=== PATIENT | male | born 1955 | race Caucasian/White ===

== ENCOUNTER 2017-02-17 10:01 | Emergency (ER) | payer MEDICARE, OTHER ==
[~2017-02-17] VITALS: Ht 165.1 cm; Wt 75.0 kg
[~2017-02-17 10:01] MED LIST: AMLO10TA2 PO; ATOR40TA16 PO; BENEPOW8 PO; CENTTAB PO; FISHCAP4 PO; LISI40TA PO; METF500T PO; PANT20 PO; TAMS5CAP PO; VITA500T PO; VITACAP7 PO
[2017-02-17 10:04] VITALS: BP 185/70; PULSE 67; RESP 18; TEMP 98; O2SAT 98
--- NOTE | 2017-02-17 10:11 | PD ---
HPI Chief Complaint: GI Complaint Time Seen by Provider: 10:10 Travel History International Travel<30 days: No Contact w/Intl Traveler<30days: No Traveled to known affect area: No History of Present Illness HPI 61-year-old male arrives with rectal bleeding for 2 months intermittently, noting blood in the throat pain. Occasional blood uncontrollable. He underwent colonoscopy and endoscopy approximately 8 months prior which was grossly unremarkable. He was started on aspirin several days ago however stopped. He reports an upset stomach on occasion. He reports a loose stools on occasion. Overall diet has been decreased. No abdominal pain. No fever. PFSH Past Medical History Depression: Yes Cardiovascular Problems: Yes Diabetes: Yes GERD: Yes Hypertension: Yes Social History Alcohol Use: No Tobacco Use: No Substance Use: No Allergies-Medications (Allergen,Severity, Reaction): Coded Allergies: Bees (Verified Allergy, Severe, throat swelling, 07/03/16) Penicillin (Verified Allergy, Intermediate, rash , sob, 07/03/16) Reported Meds & Prescriptions Reported Meds & Active Scripts Active Metamucil Smooth Texture (Psyllium Hydrophilic Mucilloid) 28.3 % Pow 1 Scoop PO DAILY PRN 30 Days 1 rounded TEASPOON in 8 oz of liquid at the first sign of irregularity. Preparation H Supp (Phenylephrine-Era Butter Supp) 0.25-88.44 % Supp 1 Supp RECTAL BID PRN 14 Days Reported Wellbutrin SR 12 HR (Bupropion HCl) 100 Mg Tab 100 Mg PO DAILY Flomax (Tamsulosin HCl) 0.4 Mg Cap 0.4 Mg PO HS Amlodipine (Amlodipine Besylate) 10 Mg Tab 10 Mg PO DAILY Atorvastatin (Atorvastatin Calcium) 40 Mg Tab 40 Mg PO HS Metformin (Metformin HCl) 500 Mg Tab 500 Mg PO BIDPC With meals Lisinopril 40 Mg Tab 40 Mg PO DAILY Review of Systems Except as stated in HPI: all other systems reviewed are Neg Physical Exam Narrative GENERAL: 61-year-old male well-nourished well-developed pleasant SKIN: Focused skin assessment warm/dry. HEAD: Atraumatic. Normocephalic. EYES: Pupils equal and round. No scleral icterus. No injection or drainage. ENT: No nasal bleeding or discharge. Mucous membranes pink and moist. NECK: Trachea midline. No JVD. CARDIOVASCULAR: Regular rate and rhythm. No murmur appreciated. RESPIRATORY: No accessory muscle use. Clear to auscultation. Breath sounds equal bilaterally. GASTROINTESTINAL: Abdomen soft, non-tender, nondistended. Hepatic and splenic margins not palpable. MUSCULOSKELETAL: No obvious deformities. No clubbing. No cyanosis. No edema. NEUROLOGICAL: Awake and alert. No obvious cranial nerve deficits. Motor grossly within normal limits. Normal speech. PSYCHIATRIC: Appropriate mood and affect; insight and judgment normal. Data Data Last Documented VS Vital Signs Date Time Temp Pulse Resp B/P Pulse Ox O2 Delivery O2 Flow Rate FiO2 02/17/17 10:04 98.0 67 18 185/70 98 Vital signs reviewed MDM Medical Decision Making Medical Screen Exam Complete: Yes Emergency Medical Condition: Yes Medical Record Reviewed: Yes Differential Diagnosis hemorrhoid, anemia, ugib Narrative Course PT has hemorrhoids. Scripts as below. Follow up with Dr Ibarra as needed. Return precautins discussed. Loss of appetite may coincide with Protonix and temporary cessation may be of benefit, pt and sister are in agreement. Diagnosis Primary Impression: Internal hemorrhoid, bleeding Additional Impression: Loss of appetite Referrals: DR IBARRA 2 days Additional Instructions: You have a choice when it comes to health care, and we are glad that you chose [email or web address]. Hopefully, we have met your expectations on today's visit. You are welcome to return to [email or web address] at any time, as we are committed to meeting the health care needs of our community. Med/Other Pt SpecificInfo: Prescription(s) given Scripts Psyllium Powder (Metamucil Smooth Texture)28.3 % Pow1 Scoop PO DAILY PRN ( CONSTIPATION) 30 Days Ref 0 1 rounded TEASPOON in 8 oz of liquid at the first sign of irregularity. Prov:Jm Rao MD 02/17/17 Phenylephrine-Era Butter Supp (Preparation H Supp)0.25-88.44 % Supp1 Supp RECTAL BID PRN (INFLAMMATION) 14 Days Ref 0 Prov:Jm Rao MD 02/17/17 Disposition: 01 DISCHARGE HOME Condition: Stable Jm Rao MD Feb 17, 2017 10:11
[2017-02-17] MEDS ORDERED: BUPR100CR PO (10:19)
[2017-02-17] MEDS ORDERED: META28.34 PO (10:31)
[2017-02-17] MEDS ORDERED: PHEN60SU RECTAL (10:31)
== END 2017-02-17 10:52 | disposition home or self-care (01) ==
LOC: PHED 10:01
DX: K64.8 Other hemorrhoids (principal); R63.0 Anorexia; K30 Functional dyspepsia; R19.7 Diarrhea, unspecified; I10 Essential (primary) hypertension; E11.9 Type 2 diabetes mellitus without complications; Z79.84 Long term (current) use of oral hypoglycemic drugs; Z86.59 Personal history of other mental and behavioral disorders; Z86.79 Personal history of other diseases of the circulatory system; Z87.19 Personal history of other diseases of the digestive system
CPT/HCPCS: 99283

== ENCOUNTER 2017-03-18 09:37 | Emergency (ER) | payer MEDICARE ==
[~2017-03-18] VITALS: Ht 165.1 cm; Wt 72.2 kg
[~2017-03-18 09:37] MED LIST changes: -BENEPOW8 PO; +BUPR100CR PO; -CENTTAB PO; -FISHCAP4 PO; +META28.34 PO; -PANT20 PO; +PHEN60SU RECTAL; -VITA500T PO; -VITACAP7 PO
[2017-03-18 09:40] VITALS: BP 214/96; PULSE 73; RESP 16; TEMP 98.1; O2SAT 99
[2017-03-18] MEDS ORDERED: TAMSULOSIN HCL 0.4 MG CAP PO ONE (10:00)
[2017-03-18] MEDS ORDERED: VENL75TA PO (10:01)
--- NOTE | 2017-03-18 10:11 | PD ---
HPI Chief Complaint: Complaint Time Seen by Provider: 09:48 Travel History International Travel<30 days: No Contact w/Intl Traveler<30days: No Traveled to known affect area: No History of Present Illness HPI 61-year-old male arrives to the ER complaining of urinary frequency and dysuria which started overnight. In the ER at the patient cannot void. About a week ago patient's Wellbutrin was changed to Effexor. He noticed no change in urinary habits following the medication change. No fever reported. Nausea and vomiting occurred once this am. He complains of some pain in the right abdomen pointing to the region of the inferolateral costal margin. Patient took Flomax last night. PFSH Past Medical History Depression: Yes Cardiovascular Problems: Yes Diabetes: Yes Patient Takes Glucophage: Yes GERD: Yes Genitourinary: Yes (HEMMORHOIDS) Hypertension: Yes Influenza Vaccination: No Social History Alcohol Use: No Tobacco Use: No Substance Use: No Allergies-Medications (Allergen,Severity, Reaction): Coded Allergies: Bees (Verified Allergy, Severe, throat swelling, 03/18/17) Penicillin (Verified Allergy, Intermediate, rash , sob, 03/18/17) Reported Meds & Prescriptions Reported Meds & Active Scripts Active Cefuroxime (Cefuroxime Axetil) 500 Mg Tab 500 Mg PO BID 7 Days Reported Effexor (Venlafaxine HCl) 75 Mg Tab 75 Mg PO DAILY Flomax (Tamsulosin HCl) 0.4 Mg Cap 0.4 Mg PO HS Amlodipine (Amlodipine Besylate) 10 Mg Tab 10 Mg PO DAILY Atorvastatin (Atorvastatin Calcium) 40 Mg Tab 40 Mg PO HS Metformin (Metformin HCl) 500 Mg Tab 500 Mg PO BIDPC With meals Lisinopril 40 Mg Tab 40 Mg PO DAILY Review of Systems Except as stated in HPI: all other systems reviewed are Neg General / Constitutional: No: Fever Physical Exam Narrative GENERAL: 61-year-old male well-nourished well-developed pleasant no acute distress SKIN: Focused skin assessment warm/dry. HEAD: Atraumatic. Normocephalic. EYES: Pupils equal and round. No scleral icterus. No injection or drainage. ENT: No nasal bleeding or discharge. Mucous membranes pink and moist. NECK: Trachea midline. No JVD. CARDIOVASCULAR: Regular rate and rhythm. No murmur appreciated. RESPIRATORY: No accessory muscle use. Clear to auscultation. Breath sounds equal bilaterally. GASTROINTESTINAL: Soft. Negative Doran sign. No tenderness at McBurney's point. No flank tenderness. Minimal suprapubic tenderness. With deep palpation along the lateral aspect of the abdomen just and diffusely or to the lateral costal margin there is some tenderness. MUSCULOSKELETAL: No obvious deformities. No clubbing. No cyanosis. No edema. NEUROLOGICAL: Awake and alert. No obvious cranial nerve deficits. Motor grossly within normal limits. Normal speech. PSYCHIATRIC: Appropriate mood and affect; insight and judgment normal. Data Data Last Documented VS Vital Signs Date Time Temp Pulse Resp B/P Pulse Ox O2 Delivery O2 Flow Rate FiO2 03/18/17 09:40 98.1 73 16 214/96 99 Vital signs reviewed Orders Urinalysis - C+S If Indicated (03/18/17 09:54) Tamsulosin (Flomax) (03/18/17 10:00) Urine Culture (03/18/17 10:15) Labs Laboratory Tests Test 03/18/17 10:15 Urine Collection Type CLEAN CATCH Urine Color STRAW Urine Turbidity CLEAR Urine pH 7.0 Urine Specific [place] 1.010 Urine Protein NEG mg/dL Urine Glucose (UA) NEG mg/dL Urine Ketones NEG mg/dL Urine Occult Blood NEG Urine Nitrite NEG Urine Bilirubin NEG Urine Leukocyte Esterase SMALL Urine WBC 6-8 /hpf Urine WBC Clumps RARE Urine Squamous Epithelial 0-2 /hpf Cells Urine Bacteria OCC /hpf Microscopic Urinalysis Comment CULTURE INDICATED MDM Medical Decision Making Medical Screen Exam Complete: Yes Emergency Medical Condition: Yes Medical Record Reviewed: Yes Differential Diagnosis Urinary tract infection, BPH, prostatitis, pyelonephritis Narrative Course UA: UTI present, no hematuria rocephin im here per pt's preference. ceftin outpatient. return precautions discussed. pt quite well appearing in ER and impacted stone/ureterolithiasis considered unlikely. pt has follow up with dr edie oropeza in two days. Diagnosis Primary Impression: UTI (urinary tract infection) Qualified Code: N30.00 - Acute cystitis without hematuria Referrals: Primary Care Physician 2 days Additional Instructions: PLEASE RETURN TO THE ER IF YOU DEVELOP A FEVER, VOMITING OR CONTINUED INABILITY TO URINATE. PLEASE RETURN TO THE ER IF YOU DEVELOP WORSENING ABDOMINAL PAIN OR BASED ON YOUR DISCRETION. You have a choice when it comes to health care, and we are glad that you chose [facility]. Hopefully, we have met your expectations on today's visit. You are welcome to return to [facility] at any time, as we are committed to meeting the health care needs of our community. Med/Other Pt SpecificInfo: Prescription(s) given Scripts Cefuroxime 500 Mg Las835 Mg PO BID 7 Days Ref 0 Prov:Jm Rao MD 03/18/17 Disposition: 01 DISCHARGE HOME Condition: Stable Jm Rao MD Mar 18, 2017 10:11
[2017-03-18 10:37] LABS: BLOOD, URINE NEG (NEG); GLUCOSE,URINE NEG (NEG); KETONE, URINE NEG (NEG); NITRITE,URINE NEG (NEG)
[2017-03-18 10:44] LABS: METHOD OF COLLECTION CLEAN CATCH; URINE COLOR STRAW (YELLW/STRAW)
[2017-03-18 10:46] LABS: SQUAMOUS EPITHELIAL CELL URINE 0-2 /hpf (0-5)
[2017-03-18 10:47] LABS: BACTERIA, URINE OCC /hpf; COMMENT (UR) CULTURE INDICATED; CULTURE IF INDICATED CULTURE INDICATED
[2017-03-18] MEDS ORDERED: CEFU1TAB20 PO (10:51)
[2017-03-18] MEDS ORDERED: LIDOCAINE HCL 1% 50 ML VIAL IM ONE (11:00)
[2017-03-18 11:24] VITALS: BP 164/73; PULSE 64; RESP 16; O2SAT 100
[2017-03-18] MEDS ORDERED: ZOFR4TAB3 SL (18:52)
[2017-03-18] MEDS ORDERED: HYDR-3534 PO (18:52)
== END 2017-03-18 11:39 | disposition home or self-care (01) ==
LOC: PHED 09:37
DX: N30.00 Acute cystitis without hematuria (principal); E11.9 Type 2 diabetes mellitus without complications; I10 Essential (primary) hypertension; Z88.0 Allergy status to penicillin; Z79.84 Long term (current) use of oral hypoglycemic drugs
CPT/HCPCS: 81001; 87086; 96365; 99284; J0696

== ENCOUNTER 2017-03-18 16:58 | Emergency (ER) | payer MEDICARE ==
[~2017-03-18] VITALS: Ht 165.1 cm; Wt 72.2 kg
[~2017-03-18 16:58] MED LIST changes: +CEFU1TAB20 PO; +VENL75TA PO
[2017-03-18 17:00] VITALS: BP 165/72; PULSE 79; RESP 16; TEMP 97.9; O2SAT 100
[2017-03-18] MEDS ORDERED: SODIUM CHLORIDE 0.9% FLUSH 10 ML FLUSH IV FLUSH PRN (17:15)
[2017-03-18] MEDS ORDERED: ONDANSETRON HCL 4 MG/2 ML VIAL IVP ONE (17:15)
[2017-03-18 17:32] VITALS: O2SAT 96
[2017-03-18] MEDS: SODIUM CHLOR 0.9% 1000 ML INJ 1,000 ML IV SCH ×2 (17:33→19:54)
[2017-03-18 17:34] LABS: BASOPHIL # 0.1 TH/MM3 (0-0.2); BASOPHIL % 1.8 % (0.0-2.0); EOSINOPHIL # 0.1 TH/MM3 (0-0.4); EOSINOPHIL % 1.9 % (0.0-4.0); HEMATOCRIT 37.9 % (39.0-51.0); HEMO FLAGS DIFF FINAL; LYMPHOCYTE # 1.1 TH/MM3 (1.0-4.8); MEAN CELL VOLUME 91.4 FL (80.0-100.0); MEAN CORPUSCULAR HEMOGLOBIN 30.5 PG (27.0-34.0); MEAN CORPUSCULAR HGB CONC 33.4 % (32.0-36.0); MONO % 8.4 % (0.0-8.0); NEUT % 68.9 % (16.0-70.0); PLATELET COUNT 190 TH/MM3 (150-450); RED BLOOD COUNT 4.14 MIL/MM3 (4.50-5.90); RED CELL DISTRIBUTION WIDTH 13.7 % (11.6-17.2); WHITE BLOOD COUNT 5.8 TH/MM3 (4.0-11.0)
[2017-03-18 17:43] LABS: CHLORIDE 106 MEQ/L (98-107); POTASSIUM 3.7 MEQ/L (3.5-5.1); SODIUM (NA) 143 MEQ/L (136-145)
[2017-03-18 17:47] LABS: ANION GAP 10 MEQ/L (5-15); BLOOD UREA NITROGEN 11 MG/DL (7-18)
[2017-03-18 17:50] LABS: ALT (GPT) 21 U/L (12-78); AST (GOT) 14 U/L (15-37); GLOMERULAR FILTRATION RATE 51 ML/MIN (>89)
[2017-03-18 17:51] LABS: TOTAL BILIRUBIN ADULT 0.4 MG/DL (0.2-1.0)
--- NOTE | 2017-03-18 17:52 | RADRPT ---
EXAM DATE/TIME: 03/18/2017 17:31 [facility] COMPARISON: No previous studies available for comparison. INDICATIONS : Nausea and vomiting since this morning. Right abdominal pain. ORAL CONTRAST: No oral contrast ingested. RADIATION DOSE: 10.37 CTDIvol (mGy) MEDICAL HISTORY : Hypertension. Gastroesophageal reflux disease. Diabetes. SURGICAL HISTORY : None. ENCOUNTER: Initial ACUITY: 1 day PAIN SCALE: 0/10 LOCATION: abdomen TECHNIQUE: Volumetric scanning of the abdomen and pelvis was performed. Using automated exposure control and ad justment of the mA and/or kV according to patient size, radiation dose was kept as low as reasonably achievable to obtain optimal diagnostic quality images. DICOM format image data is available electro nically for review and comparison. FINDINGS: CT Abdomen: The liver, spleen, pancreas, kidneys, adrenals are unremarkable. There is no evidence for any appreciable pathological adenopathy, free fluid, or bowel obstruction. There are vascular calci fications in both kidneys. CT pelvis: There is no evidence for mass, abscess formation, or any significant adenopathy within the pelvis. The prostate gland is inhomogeneous and measures 4.2 x 5.3 cm in AP and transverse diameters and nonspecific. There is moderate amount of stool throughout the colon. There are scattered diverti culi mainly in the sigmoid colon without definite signs of diverticulitis. There are degenerative ceci nges and possible bulging discs in the lower lumbosacral spine not adequately characterized. There ar e tiny bone islands within the pelvic bones. CONCLUSION: Chronic and benign changes and the etiology for the patient's symptomatology is not e vident. Kapil Hyed MD on March 18, 2017 at 17:47 Board Certified Radiologist. This report was verified electronically.
[2017-03-18 17:53] LABS: ALKALINE PHOSPHATASE 110 U/L (45-117)
--- NOTE | 2017-03-18 18:09 | PD ---
HPI Chief Complaint: GI Complaint Time Seen by Provider: 17:11 Travel History International Travel<30 days: No Contact w/Intl Traveler<30days: No Traveled to known affect area: No History of Present Illness HPI PER PATIENT WAS SEEN AND DX WITH UTI EARLIER THIS MORNING GIVEN ROCEPHIN IM IN ED AND DC ON CEFTIN. PATIENT RETURNS BECAUSE OF EPISODE OF N/V ALONG WITH RIGHT FLANK/BACK PAIN , NONRAD, 03/28, THAT HAS BEEN INTERMITTENT...pt has cerebral palsy and is well known to who cares for him mostly. PFSH Past Medical History Depression: Yes Cardiovascular Problems: Yes Diabetes: Yes Patient Takes Glucophage: Yes GERD: Yes Genitourinary: Yes (HEMMORHOIDS) Hypertension: Yes Tetanus Vaccination: > 5 Years Influenza Vaccination: No Past Surgical History Surgical History: No Previous Surgery Social History Alcohol Use: No Tobacco Use: No Substance Use: No Allergies-Medications (Allergen,Severity, Reaction): Coded Allergies: Bees (Verified Allergy, Severe, throat swelling, 03/18/17) Penicillin (Verified Allergy, Intermediate, rash , sob, 03/18/17) Reported Meds & Prescriptions Reported Meds & Active Scripts Active Zofran Odt (Ondansetron Odt) 4 Mg Tab 4 Mg SL Q6HR PRN Lortab (Hydrocodone-Acetaminophen) 7.5-325 Mg Tab 1 Tab PO Q6H PRN Cefuroxime (Cefuroxime Axetil) 500 Mg Tab 500 Mg PO BID 7 Days Reported Effexor (Venlafaxine HCl) 75 Mg Tab 75 Mg PO DAILY Flomax (Tamsulosin HCl) 0.4 Mg Cap 0.4 Mg PO HS Amlodipine (Amlodipine Besylate) 10 Mg Tab 10 Mg PO DAILY Atorvastatin (Atorvastatin Calcium) 40 Mg Tab 40 Mg PO HS Metformin (Metformin HCl) 500 Mg Tab 500 Mg PO BIDPC With meals Lisinopril 40 Mg Tab 40 Mg PO DAILY Review of Systems Except as stated in HPI: all other systems reviewed are Neg Gastrointestinal: Positive: Nausea, Vomiting Genitourinary: Positive: Flank Pain Physical Exam Narrative GENERAL: SKIN: Warm and dry. HEAD: Atraumatic. Normocephalic. EYES: Pupils equal and round. No scleral icterus. No injection or drainage. ENT: No nasal bleeding or discharge. Mucous membranes pink and moist. NECK: Trachea midline. No JVD. CARDIOVASCULAR: Regular rate and rhythm. RESPIRATORY: No accessory muscle use. Clear to auscultation. Breath sounds equal bilaterally. GASTROINTESTINAL: Abdomen soft, non-tender, nondistended. NEG AGUILAR'S SIGN, NEG CULLENS/ROVSINGS/PSOAS SIGN MUSCULOSKELETAL: Extremities without clubbing, cyanosis, or edema. No obvious deformities. NEUROLOGICAL: Awake and alert. No obvious cranial nerve deficits. Motor grossly within normal limits. Five out of 5 muscle strength in the arms and legs. Normal speech. PSYCHIATRIC: Appropriate mood and affect; insight and judgment normal. Data Data Last Documented VS Vital Signs Date Time Temp Pulse Resp B/P Pulse Ox O2 Delivery O2 Flow Rate FiO2 03/18/17 18:26 63 16 191/91 100 Room Air 03/18/17 17:00 97.9 Orders Complete Blood Count With Diff (03/18/17 17:15) Comprehensive Metabolic Panel (03/18/17 17:15) Lipase (03/18/17 17:15) Ct Abd/Pel W/O Iv Contrast (03/18/17 17:15) Iv Access Insert/Monitor (03/18/17 17:15) Ecg Monitoring (03/18/17 17:15) Oximetry (03/18/17 17:15) NPO (03/18/17 17:15) Ondansetron Inj (Zofran Inj) (03/18/17 17:15) Sodium Chlor 0.9% 1000 Ml Inj (Ns 1000 M (03/18/17 17:15) Sodium Chloride 0.9% Flush (Ns Flush) (03/18/17 17:15) Clonidine (Catapres) (03/18/17 18:45) Labs Laboratory Tests Test 03/18/17 17:25 White Blood Count 5.8 TH/MM3 Red Blood Count 4.14 MIL/MM3 Hemoglobin 12.6 GM/DL Hematocrit 37.9 % Mean Corpuscular Volume 91.4 FL Mean Corpuscular Hemoglobin 30.5 PG Mean Corpuscular Hemoglobin 33.4 % Concent Red Cell Distribution Width 13.7 % Platelet Count 190 TH/MM3 Mean Platelet Volume 10.1 FL Neutrophils (%) (Auto) 68.9 % Lymphocytes (%) (Auto) 19.0 % Monocytes (%) (Auto) 8.4 % Eosinophils (%) (Auto) 1.9 % Basophils (%) (Auto) 1.8 % Neutrophils # (Auto) 4.0 TH/MM3 Lymphocytes # (Auto) 1.1 TH/MM3 Monocytes # (Auto) 0.5 TH/MM3 Eosinophils # (Auto) 0.1 TH/MM3 Basophils # (Auto) 0.1 TH/MM3 CBC Comment DIFF FINAL Differential Comment Sodium Level 143 MEQ/L Potassium Level 3.7 MEQ/L Chloride Level 106 MEQ/L Carbon Dioxide Level 27.0 MEQ/L Anion Gap 10 MEQ/L Blood Urea Nitrogen 11 MG/DL Creatinine 1.40 MG/DL Estimat Glomerular Filtration 51 ML/MIN Rate Random Glucose 118 MG/DL Calcium Level 8.8 MG/DL Total Bilirubin 0.4 MG/DL Aspartate Amino Transf 14 U/L (AST/SGOT) Alanine Aminotransferase 21 U/L (ALT/SGPT) Alkaline Phosphatase 110 U/L Total Protein 6.6 GM/DL Albumin 3.3 GM/DL Lipase 413 U/L [facility] Medical Decision Making Medical Screen Exam Complete: Yes Emergency Medical Condition: Yes Medical Record Reviewed: Yes Differential Diagnosis UTI V PYELO V BILIARY COLIC V PANCREATITIS V LIVER V ENTERITIS Narrative Course patient was not found to have any gallstones/pyelo/renal stones or e/o pancreatitis. patient's was able to tolerate po well, will d/c with advise to keep a liquid diet due to mildly elev pancreas enzymes but without evidence consistent with pancreatitis Diagnosis Primary Impression: UTI (urinary tract infection) Qualified Code: N30.00 - Acute cystitis without hematuria Patient Instructions: Full Liquid Diet (GEN), General Instructions Scripts Ondansetron Odt (Zofran Odt)4 Mg Tab4 Mg SL Q6HR PRN (Nausea/Vomiting) #12 TAB Prov:Eyal Leach MD 03/18/17 Hydrocodone-Acetaminophen (Lortab)7.5-325 Mg Tab1 Tab PO Q6H PRN (PAIN) #20 TAB Prov:Eyal Leach MD 03/18/17 Disposition: 01 DISCHARGE HOME Condition: Stable Eyal Leach MD Mar 18, 2017 18:09
[2017-03-18 18:26] VITALS: BP 191/91; PULSE 63; RESP 16; O2SAT 100
[2017-03-18] MEDS ORDERED: cloNIDine HCL 0.1 MG TAB PO ONE (18:45)
[2017-03-18] MEDS ORDERED: ZOFR4TAB3 SL (18:52)
[2017-03-18] MEDS ORDERED: HYDR-3534 PO (18:52)
[2017-03-18 19:00] VITALS: BP 187/80; PULSE 62; RESP 16; O2SAT 100
[2017-03-18 20:00] VITALS: BP 178/74; PULSE 53; RESP 16; O2SAT 100
== END 2017-03-18 20:30 | disposition home or self-care (01) ==
LOC: PHED 16:58
DX: N30.00 Acute cystitis without hematuria (principal); R11.2 Nausea with vomiting, unspecified; M54.9 Dorsalgia, unspecified; G80.9 Cerebral palsy, unspecified; E11.9 Type 2 diabetes mellitus without complications; I10 Essential (primary) hypertension; Z88.0 Allergy status to penicillin; Z79.84 Long term (current) use of oral hypoglycemic drugs
CPT/HCPCS: 74176; 80053; 83690; 85025; 96361; 96374; 99285; J2405; J7030